=== PATIENT | male | born 1955 | race African-American/Black ===

== ENCOUNTER 2023-08-27 05:32 | Inpatient (IN) | payer MEDICARE, BC ==
[~2023-08-27] VITALS: Ht 188 cm; Wt 99.0 kg
[2023-08-27] MEDS ORDERED: POLYMYXIN B SULFATE 500,000 UNITS ONE (05:57)
[2023-08-27] MEDS ORDERED: ANESTHESIA TRAY IN PYXIS 1 EA TRAY MC ONE (05:57)
[2023-08-27] MEDS ORDERED: BUPIVACAINE 0.5 % PF 150 MG/30 ML VIAL ONE (05:57)
[2023-08-27] MEDS ORDERED: FENTANYL PF 100MCG/2ML AMPUL ONE (06:24)
[2023-08-27] MEDS ORDERED: HYDROMORPHONE INJ 2 MG/ML DISP.SYRIN ONE (06:24)
[2023-08-27] MEDS ORDERED: MIDAZOLAM HCL 2 MG/2ML VIAL ONE (06:25)
[2023-08-27] MEDS ORDERED: BUPIVACAINE 0.25% 75 MG/30 ML VIAL ONE (06:35)
[2023-08-27] MEDS ORDERED: HYDROMORPHONE 1 MG/1 ML DISP.SYRIN IM/IV/SC PRN (07:00)
[2023-08-27] MEDS ORDERED: diphenhydrAMINE HCL 25 MG CAPSULE PO PRN (07:00)
[2023-08-27] MEDS ORDERED: MAG HYDROX/AL HYDROX/SIMETH 30 ML UDC PO PRN (07:00)
[2023-08-27] MEDS ORDERED: MAGNESIUM HYDROXIDE 30 ML UDC PO PRN (07:00)
[2023-08-27] MEDS ORDERED: oxyCODONE IR immediate release 5 MG TABLET PO PRN ×2 (07:00→19:00)
[2023-08-27] MEDS ORDERED: CLONIDINE HCL 0.1 MG TABLET PO PRN ×3 (07:00→09:30)
[2023-08-27] MEDS ORDERED: TRANEXAMIC ACID 1,000 MG/10 ML VIAL ONE ×2 (07:03→07:15)
[2023-08-27] MEDS: TRANEXAMIC ACID 3,000 MG in SODIUM CHLORIDE IRRIG SOLUTION 70 ML IR ONE (07:30)
[2023-08-27] MEDS ORDERED: FAMOTIDINE (20 MG) 20 MG TABLET PO SCH (09:00)
[2023-08-27] MEDS ORDERED: MENTHOL/CETYLPYRD (CEPACOL) 1 LOZ LOZENGE PO PRN (10:00)
[2023-08-27] MEDS: DOCUSATE SODIUM 100 MG CAPSULE PO SCH (10:17)
[2023-08-27] MEDS: PANTOPRAZOLE 40 MG TABLET.DR PO SCH (10:17)
[2023-08-27] MEDS: TAMSULOSIN 0.4 MG CAP.SR.24H PO SCH (10:17)
[2023-08-27] MEDS ORDERED: METO-358 PO (10:46)
[2023-08-27] MEDS ORDERED: LANS30CA56 PO (10:46)
[2023-08-27] MEDS ORDERED: DAPA10TA PO (10:46)
[2023-08-27] MEDS ORDERED: OLME1TAB88 PO (10:46)
[2023-08-27] MEDS ORDERED: METF750T46 PO (10:46)
[2023-08-27] MEDS ORDERED: RIVA10TA PO (10:46)
[2023-08-27] MEDS ORDERED: BISACODYL SUPP (10 MG) 10 MG/SUPP.RECT SUPP.RECT RC PRN (13:00)
[2023-08-27] MEDS ORDERED: DOCUSATE SODIUM 250 MG CAPSULE PO PRN (13:00)
[2023-08-27] MEDS ORDERED: SENNOSIDES 8.6 MG TABLET PO PRN (13:00)
[2023-08-27] MEDS ORDERED: ZOLPIDEM TARTRATE 5 MG TABLET PO PRN (13:00)
[2023-08-27] MEDS: IV D5/0.45 NACL 1,000 ML IV PRN (13:11)
[2023-08-27] MEDS: ANCEF 1 GM/50 ML D5W IV SCH (13:12)
[2023-08-27] MEDS: MORPHINE SULFATE INJ 4 MG/ML DISP.SYRIN IM/IV/SC PRN (13:25)
[2023-08-27] MEDS: HYDROMORPHONE 1 MG/1 ML DISP.SYRIN IV PRN (15:31)
[2023-08-27] MEDS: oxyCODONE IR immediate release 5 MG TABLET PO ONE (18:34)
[2023-08-27] MEDS: ONDANSETRON HCL/PF 4 MG/2 ML VIAL IV PRN (18:34)
[2023-08-27] MEDS ORDERED: SCOPOLAMINE PATCH 1 MG/72HR TD PRN (19:30)
[2023-08-27] MEDS: METFORMIN 500 MG TABLET PO SCH (19:48)
[2023-08-27 21:12] VITALS: BP 107/70; TEMP 98.1; O2SAT 97
[2023-08-27] MEDS: oxyCODONE IR immediate release 5 MG TABLET PO PRN (21:27)
[2023-08-28 08:00] VITALS: BP 110/58; TEMP 98.4; O2SAT 94
[2023-08-28] MEDS: POLYETHYLENE GLYCOL 3350 17 GM POWD.PACK PO SCH (08:22)
[2023-08-28] MEDS ORDERED: ASPIRIN 325 MG TABLET PO SCH (09:00)
[2023-08-28 16:00] VITALS: BP 133/73; TEMP 98.9; O2SAT 98
[2023-08-28] MEDS ORDERED: RIVAROXABAN 10 MG TABLET PO SCH (17:00)
[2023-08-28] MEDS: METOPROLOL SUCCINATE 50 MG TAB.SR.24H PO SCH (17:21)
[2023-08-28] MEDS: RIVAROXABAN 10 MG TABLET PO SCH (18:39)
[2023-08-28 20:00] VITALS: BP 121/72; TEMP 98.1; O2SAT 95
[2023-08-29 08:00] VITALS: BP 106/66; TEMP 98.6; O2SAT 95
[2023-08-29] MEDS ORDERED: PANTOPRAZOLE 40 MG TABLET.DR PO SCH (09:00)
[2023-08-29] MEDS ORDERED: RIVAROXABAN 10 MG TABLET PO SCH (09:00)
[2023-08-29] MEDS: HYDROCHLOROTHIAZIDE 25 MG TABLET PO SCH (09:07)
[2023-08-29 09:11] VITALS: BP 106/66
[2023-08-29] MEDS: LOSARTAN POTASSIUM 50 MG TABLET PO SCH (09:11)
[2023-08-29] MEDS: DAPAGLIFLOZIN PROPANEDIOL 5 MG TABLET PO SCH (09:15)
== END 2023-08-29 17:40 | DRG 464 ==
LOC: DS 05:32 → MED 09:03
PROVIDERS: ADMIT Internal Medicine; ATTEND Internal Medicine
PROC: 0SPD0MZ Removal of Lateral Unicondylar Synthetic Substitute from Left Knee Joint, Open Approach (ICD-10-PCS; principal; 2023-08-27)
PROC: 0SRD0MZ Replacement of Left Knee Joint with Lateral Unicondylar Synthetic Substitute, Open Approach (ICD-10-PCS; 2023-08-27)
PROC: 0KNR0ZZ Release Left Upper Leg Muscle, Open Approach (ICD-10-PCS; 2023-08-27)
DX: T84.093A Other mechanical complication of internal left knee prosthesis, initial encounter (principal); K57.92 Diverticulitis of intestine, part unspecified, without perforation or abscess without bleeding; Y83.8 Other surgical procedures as the cause of abnormal reaction of the patient, or of later complication, without mention of misadventure at the time of the procedure; Y92.89 Other specified places as the place of occurrence of the external cause; M17.12 Unilateral primary osteoarthritis, left knee; K21.9 Gastro-esophageal reflux disease without esophagitis; I48.0 Paroxysmal atrial fibrillation; N18.9 Chronic kidney disease, unspecified; E11.22 Type 2 diabetes mellitus with diabetic chronic kidney disease; I12.9 Hypertensive chronic kidney disease with stage 1 through stage 4 chronic kidney disease, or unspecified chronic kidney disease; E29.1 Testicular hypofunction; K29.70 Gastritis, unspecified, without bleeding; Z80.0 Family history of malignant neoplasm of digestive organs; Z82.49 Family history of ischemic heart disease and other diseases of the circulatory system; Z83.3 Family history of diabetes mellitus; Z96.652 Presence of left artificial knee joint; Z79.899 Other long term (current) drug therapy; Z79.84 Long term (current) use of oral hypoglycemic drugs; Z79.01 Long term (current) use of anticoagulants
CPT/HCPCS: 82962-TC; 93971-TC; 97110-TC; 97116-TC; 97530-TC; A4217; A6253; A6403; C1776; G0378; J0690; J1170; J2250; J2270; J2405; J2704; J2765; J3010; J3490; J7030; J7060